=== PATIENT | male | born 2000 | race Caucasian/White ===

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

== ENCOUNTER 2024-01-28 23:55 | Emergency (ER) | payer MEDICAID ==
[~2024-01-28] VITALS: Ht 172.7 cm; Wt 68.0 kg
[2024-01-28 23:55] VITALS: BP 101/60; PULSE 76; RESP 16; O2SAT 96
== END 2024-01-29 04:38 | disposition home or self-care (01) ==
LOC: ER 23:55
DX: F10.129 Alcohol abuse with intoxication, unspecified (principal); R41.82 Altered mental status, unspecified; Y90.8 Blood alcohol level of 240 mg/100 ml or more
CPT/HCPCS: 70450